=== PATIENT | female | born 1935 | race Two or more races ===

== ENCOUNTER 2017-10-31 11:52 | Emergency (ER) | payer OTHER ==
[~2017-10-31] VITALS: Ht 149.9 cm; Wt 2.3 kg
[2017-10-31] MEDS ORDERED: ATORVASTATIN CA20 MG (12:51)
[2017-10-31] MEDS ORDERED: ATENOLOL50 MG (12:52)
[2017-10-31] MEDS ORDERED: HYZAAR 100-251 EACH (12:52)
[2017-10-31] MEDS ORDERED: ASA81 MG (12:52)
[2017-10-31] MEDS ORDERED: LASIX20 MG (12:53)
[2017-10-31] MEDS ORDERED: SM COD LIVER O1 EACH (12:53)
== END 2017-10-31 16:15 | disposition home or self-care (01) ==
LOC: ER 11:52
DX: I10 Essential (primary) hypertension (principal)

== ENCOUNTER 2017-11-03 10:03 | Outpatient (CLI) | payer OTHER ==
[~2017-11-03 10:03] MED LIST: ASA81 MG; ATENOLOL50 MG; ATORVASTATIN CA20 MG; HYZAAR 100-251 EACH; LASIX20 MG; SM COD LIVER O1 EACH
== END 2017-11-03 10:12 | disposition home or self-care (01) ==
LOC: MAMO-SONO 10:03
DX: Z12.31 Encounter for screening mammogram for malignant neoplasm of breast (principal); Z87.898 Personal history of other specified conditions; E03.8 Other specified hypothyroidism; E55.9 Vitamin D deficiency, unspecified; E78.89 Other lipoprotein metabolism disorders; I10 Essential (primary) hypertension; Z95.0 Presence of cardiac pacemaker; Z95.828 Presence of other vascular implants and grafts; E66.8 Other obesity; I20.1 Angina pectoris with documented spasm; I49.9 Cardiac arrhythmia, unspecified; I50.9 Heart failure, unspecified; K21.9 Gastro-esophageal reflux disease without esophagitis; M15.8 Other polyosteoarthritis

== ENCOUNTER 2017-11-06 13:24 | Outpatient (CLI) | payer OTHER | END 2017-11-06 13:41 | disposition home or self-care (01) | LOC: NUCLEAR 13:24 | DX: M81.0 Age-related osteoporosis without current pathological fracture (principal); I10 Essential (primary) hypertension; E78.9 Disorder of lipoprotein metabolism, unspecified; E03.9 Hypothyroidism, unspecified; E55.9 Vitamin D deficiency, unspecified; Z95.0 Presence of cardiac pacemaker; Z95.828 Presence of other vascular implants and grafts; E66.8 Other obesity; I20.1 Angina pectoris with documented spasm; I49.9 Cardiac arrhythmia, unspecified; I50.9 Heart failure, unspecified; K21.9 Gastro-esophageal reflux disease without esophagitis; M15.9 Polyosteoarthritis, unspecified ==

== ENCOUNTER 2019-07-18 09:03 | Outpatient (CLI) | payer OTHER | END 2019-07-18 09:13 | disposition home or self-care (01) | LOC: RAD 09:03 | DX: I11.9 Hypertensive heart disease without heart failure (principal); I49.5 Sick sinus syndrome; Z95.0 Presence of cardiac pacemaker; Z95.828 Presence of other vascular implants and grafts; E78.49 Other hyperlipidemia; E03.8 Other specified hypothyroidism; E55.9 Vitamin D deficiency, unspecified; E66.8 Other obesity; I20.1 Angina pectoris with documented spasm; I49.8 Other specified cardiac arrhythmias; I50.89 Other heart failure; K21.9 Gastro-esophageal reflux disease without esophagitis ==

== ENCOUNTER 2020-04-02 13:03 | Outpatient (CLI) | payer OTHER | END 2020-04-02 13:50 | disposition home or self-care (01) | LOC: NUCLEAR 13:03 | PROVIDERS: ATTEND Internal Medicine | DX: M81.8 Other osteoporosis without current pathological fracture (principal); I11.9 Hypertensive heart disease without heart failure; I49.5 Sick sinus syndrome; Z95.0 Presence of cardiac pacemaker; Z95.828 Presence of other vascular implants and grafts; E78.89 Other lipoprotein metabolism disorders; E55.9 Vitamin D deficiency, unspecified; E66.8 Other obesity; I20.1 Angina pectoris with documented spasm; I49.8 Other specified cardiac arrhythmias; I50.9 Heart failure, unspecified; K21.9 Gastro-esophageal reflux disease without esophagitis ==

== ENCOUNTER 2020-05-24 10:48 | Emergency (ER) | payer OTHER ==
[~2020-05-24] VITALS: Ht 152.4 cm; Wt 73.9 kg
[2020-05-24] MEDS ORDERED: ORPHENADRINE C100 MG PO (15:44)
[2020-05-24] MEDS ORDERED: DICLOFENAC POTA50 MG PO (15:44)
== END 2020-05-24 15:50 | disposition home or self-care (01) ==
LOC: ER 10:48
DX: M79.601 Pain in right arm (principal); M54.2 Cervicalgia

== ENCOUNTER 2020-06-06 13:12 | Emergency (ER) | payer OTHER ==
[~2020-06-06] VITALS: Ht 152.4 cm; Wt 73.9 kg
[~2020-06-06 13:12] MED LIST changes: +DICLOFENAC POTA50 MG PO; +ORPHENADRINE C100 MG PO
== END 2020-06-06 14:45 | disposition home or self-care (01) ==
LOC: ER 13:12
DX: M54.2 Cervicalgia (principal)

== ENCOUNTER 2020-10-18 09:57 | Outpatient (CLI) | payer OTHER | END 2020-10-18 10:02 | disposition home or self-care (01) | LOC: RAD 09:57 | PROVIDERS: ATTEND Internal Medicine | DX: M19.042 Primary osteoarthritis, left hand (principal); M54.5 Low back pain; Z68.31 Body mass index [BMI] 31.0-31.9, adult; F32.89 Other specified depressive episodes; I11.9 Hypertensive heart disease without heart failure; I49.5 Sick sinus syndrome; Z95.0 Presence of cardiac pacemaker; I49.8 Other specified cardiac arrhythmias; M67.844 Other specified disorders of tendon, left hand ==

== ENCOUNTER 2021-01-17 10:45 | Emergency (ER) | payer OTHER ==
[~2021-01-17] VITALS: Ht 152.4 cm; Wt 71.2 kg
== END 2021-01-17 13:42 | disposition home or self-care (01) ==
LOC: ER 10:45
DX: S00.83XA Contusion of other part of head, initial encounter (principal); I16.1 Hypertensive emergency; I10 Essential (primary) hypertension; W18.09XA Striking against other object with subsequent fall, initial encounter; Y93.89 Activity, other specified; Y92.480 Sidewalk as the place of occurrence of the external cause; Y99.8 Other external cause status

== ENCOUNTER 2024-10-31 09:15 | Outpatient (CLI) | payer OTHER | END 2024-10-31 09:18 | disposition home or self-care (01) | LOC: RAD 09:15 | DX: S72.361 Displaced segmental fracture of shaft of right femur (principal); S72.041D Displaced fracture of base of neck of right femur, subsequent encounter for closed fracture with routine healing; X58.XXXD Exposure to other specified factors, subsequent encounter ==